=== PATIENT | male | born 1955 | race Caucasian/White ===

== ENCOUNTER → 2024-10-04 | Outpatient (BNVA) | payer OTHER, SELFPAY | END | disposition home or self-care (01) | PROVIDERS: PCP Family Medicine; Referring Provider Family Medicine; Visit Provider Urology | DX: N40.1 Benign prostatic hyperplasia with lower urinary tract symptoms (principal); N13.8 Other obstructive and reflux uropathy; N20.0 Calculus of kidney; E11.9 Type 2 diabetes mellitus without complications; C15.9 Malignant neoplasm of esophagus, unspecified; F41.8 Other specified anxiety disorders; K21.9 Gastro-esophageal reflux disease without esophagitis; Z87.440 Personal history of urinary (tract) infections | CPT/HCPCS: 81003; 99212; G0463 ==